=== PATIENT | female | born 1945 | race Two or more races ===

== ENCOUNTER 2020-08-13 09:14 | Outpatient (CLI) | payer OTHER | END 2020-08-13 09:19 | disposition home or self-care (01) | LOC: RX STUDY 09:14 | PROVIDERS: ATTEND Family Medicine Geriatric Medicine | DX: R13.19 Other dysphagia (principal); R05 Cough; R11.2 Nausea with vomiting, unspecified; R11.0 Nausea ==

== ENCOUNTER 2021-02-17 13:01 | Emergency (ER) | payer OTHER ==
[~2021-02-17] VITALS: Ht 160 cm; Wt 99.8 kg
== END 2021-02-17 16:31 | disposition home or self-care (01) ==
LOC: ER 13:01
DX: S81.021A Laceration with foreign body, right knee, initial encounter (principal); M12.562 Traumatic arthropathy, left knee; M12.561 Traumatic arthropathy, right knee; W18.09XA Striking against other object with subsequent fall, initial encounter; Y93.89 Activity, other specified; Y92.488 Other paved roadways as the place of occurrence of the external cause; Y99.8 Other external cause status; Z96.653 Presence of artificial knee joint, bilateral